=== PATIENT | male | born 1995 | race African-American/Black ===

== ENCOUNTER 2021-03-24 13:13 | Emergency (ER) | payer SELFPAY ==
[~2021-03-24] VITALS: Ht 170.2 cm; Wt 81.6 kg
[2021-03-24 13:16] VITALS: BP 149/99
[2021-03-24 13:47] LABS: MICROSCOPIC NOT IND
[2021-03-24] MEDS ORDERED: CEFTRIAXONE 1,000 MG IM ONE (14:00)
[2021-03-24] MEDS ORDERED: DOXYCYCLINE 100MG TABLET PO ONE (14:00)
--- NOTE | 2021-03-24 14:17 | NUR ---
pt to room from lobby
[2021-03-24] MEDS ORDERED: DOXYCYCLINE 100MG TABLET ONE (14:54)
[2021-03-24] MEDS ORDERED: CEFTRIAXONE 1,000 MG ONE (14:54)
== END 2021-03-24 15:05 | disposition home or self-care (01) ==
LOC: ED 14:59
DX: N34.1 Nonspecific urethritis (principal); R30.0 Dysuria; F17.210 Nicotine dependence, cigarettes, uncomplicated; R00.0 Tachycardia, unspecified
CPT/HCPCS: 81003; 87491; 87591; 96374; 99283; J0696

== ENCOUNTER 2021-04-17 14:21 | Emergency (ER) | payer SELFPAY ==
[~2021-04-17] VITALS: Ht 170.2 cm; Wt 79.8 kg
--- NOTE | 2021-04-17 14:56 | NUR ---
medication aide: pt given urine cup in triage
[2021-04-17] MEDS ORDERED: AZITHROMYCIN 500 MG TABLET PO ONE (15:00)
[2021-04-17] MEDS ORDERED: CEFTRIAXONE 1,000 MG IM ONE (15:00)
[2021-04-17 17:18] VITALS: BP 139/85
--- NOTE | 2021-04-17 18:32 | NUR ---
MERCERIZER: PT TO ROOM FROM LOBBY
[2021-04-17] MEDS ORDERED: CEFTRIAXONE 1,000 MG ONE (18:35)
[2021-04-17] MEDS ORDERED: AZITHROMYCIN 250 MG TABLET ONE (18:36)
[2021-04-17 19:10] LABS: MICROSCOPIC INDICATED
== END 2021-04-17 19:47 | disposition home or self-care (01) ==
LOC: ED 19:21
DX: N34.1 Nonspecific urethritis (principal); F17.200 Nicotine dependence, unspecified, uncomplicated
CPT/HCPCS: 81001; 87086; 87491; 87591; 96372; 99283; J0696

== ENCOUNTER 2021-04-21 07:31 | Emergency (ER) | payer SELFPAY ==
[~2021-04-21] VITALS: Ht 170.2 cm; Wt 81.2 kg
--- NOTE | 2021-04-21 07:54 | NUR ---
[facility]ERT[facility] ORTIZ [facility]
--- NOTE | 2021-04-21 07:54 | NUR ---
PT C/O URETHRAL DISCHARGE AND ITCHING. PT WAS SEEN 4 DAYS AGO FOR SYMPTOMS AND HAD AN STD TEST THAT CAME BACK NEGATIVE. PT'S SYMPTOMS UNRESOLVED OF TODAY.
[2021-04-21] MEDS ORDERED: metroNIDAZOLE 500 MG TABLET ONE (08:07)
[2021-04-21] MEDS ORDERED: metroNIDAZOLE 500 MG TABLET PO ONE (08:30)
[2021-04-21 08:31] LABS: MICROSCOPIC NOT IND
[2021-04-21 08:54] VITALS: BP 124/74
== END 2021-04-21 08:56 | disposition home or self-care (01) ==
LOC: ED 08:35
DX: N34.1 Nonspecific urethritis (principal); F17.200 Nicotine dependence, unspecified, uncomplicated
CPT/HCPCS: 81003; 99283